=== PATIENT | male | born 2000 | race Caucasian/White ===

== ENCOUNTER 2024-11-06 21:56 | Emergency (ER) | payer OTHER ==
[2024-11-06 22:05] VITALS: BP 120/60; PULSE 90; RESP 16; TEMP 98.3; BMI 20.7
== END 2024-11-06 22:24 | disposition home or self-care (01) ==
LOC: FER 21:56
DX: H10.9 Unspecified conjunctivitis (principal)
CPT/HCPCS: 99283-25